=== PATIENT | male | born 1995 | race Caucasian/White ===

== ENCOUNTER 2018-09-03 18:44 | Emergency (ER) | payer OTHER ==
[2018-09-03 18:49] VITALS: BP 126/74; PULSE 67
--- NOTE | 2018-09-03 18:50 | PDOC ---
Rapid Medical Evaluation Chief Complaint: Rectal Bleed Time Seen by Provider: 09/03/18 18:48 Medical Evaluation: Allergies Allergy/AdvReac Type Severity Reaction Status Date / Time No Known Allergies Allergy Verified 07/09/16 23:05 09/03/18 18:48 I have performed a brief in-person evaluation of this patient. The patient presents with a chief complaint of:abd pain w/ bloody diarrhea today. No f/c/n/v. No recent travel/sick contacts or abx use. No sig pmhx Pertinent physical exam findings:Stable and well violeta I have ordered the following:labs The patient will proceed to the ED for further evaluation Discharge Disposition - Diagnosis Diarrhea Qualifiers: Diarrhea type: unspecified type Qualified Code(s): R19.7 - Diarrhea, unspecified - Discharge Dispostion Condition at time of disposition: Stable - Referrals - Patient Instructions - Post Discharge Activity
--- NOTE | 2018-09-03 19:55 | PDOC ---
History of Present Illness - General Chief Complaint: Rectal Bleed Stated Complaint: Rectal Bleed Time Seen by Provider: 09/03/18 18:48 History Source: Patient Exam Limitations: No Limitations - History of Present Illness Initial Comments: 19 yo M w no sig pmh here with 1 day of bloody diarrhea and mild abdominal pain. He denies recent travel or eating raw meat/ hamburgers. No sick contacts in his house. He reports not being in any abdominal pain at the present moment. He admits to drinking more alcohol in the past few weeks than usual ~ around 6 or 7 drinks at the most. Denies any Hx of crohn's or UC. He denies any recent fevers, chills or infections. He denies recent travel. Denies chest pain, SOB, difficulty breathing. Denies any back pain, leg pain, joint pain, dysuria, frequency, urgency. PCP: Angela Morrow Social Hx: Drinks alcohol, smokes marijuana. Denies smoking cigarettes, hooka, or illicit drug usage Allergies: NKA, NKDA Past History - Past Medical History Allergies/Adverse Reactions: Allergies Allergy/AdvReac Type Severity Reaction Status Date / Time No Known Allergies Allergy Verified 07/09/16 23:05 Home Medications: Ambulatory Orders NK [No Known Home Medication] 07/09/16 COPD: No Disorders: No Lung CA: No - Surgical History Cholecystectomy: No Lung Surgery: No - Immunization History Immunization Up to Date: No - Suicide/Smoking/Psychosocial Hx Smoking History: Never smoked Have you smoked in the past 12 months: No Number of Cigarettes Smoked Daily: 0 Information on smoking cessation initiated: No Hx Alcohol Use: No Drug/Substance Use Hx: No Review of Systems - Review of Systems Able to Perform ROS?: Yes Comments:: CONSTITUTIONAL: Absent: fever, no chills, no fatigue EYES: Absent: visual changes ENT: Absent: ear pain, no sore throat CARDIOVASCULAR: Absent: chest pain, no palpitations RESPIRATORY: Absent: cough, no SOB GI: Present: Abdominal pain, Diarrhea Absent: no nausea, no vomiting, no constipation GENITOURINARY: Absent: dysuria, no frequency, no hematuria MUSKULOSKELETAL: Absent: back pain, no arthralgia, no myalgia SKIN: Absent: rash NEURO: Absent: headache *Physical Exam - Vital Signs Last Vital Signs Temp Pulse Resp BP Pulse Ox 98.3 F 67 18 126/74 100 09/03/18 18:46 09/03/18 18:46 09/03/18 18:46 09/03/18 18:46 09/03/18 18:46 - Physical Exam Comments: GENERAL: Well-appearing, well-nourished. No apparent distress. HEENT: Normocephalic, atraumatic. PERRL, EOM intact. CARDIOVASCULAR: Normal S1, S2. Regular rate and rhythm. PULMONARY: Clear to auscultation bilaterally. ABDOMEN: Normal bowel sounds. Soft, non-distended, non-tender. EXTREMITIES: Normal ROM in all four extremities. No gross deformities. SKIN: Warm, dry. No rash NEUROLOGICAL: No focal neurological deficits. Moderate Sedation - Procedure Monitoring Vital Signs: Procedure Monitoring Vital Signs Temperature 98.3 F 09/03/18 18:46 Pulse Rate 67 09/03/18 18:46 Respiratory Rate 18 09/03/18 18:46 Blood Pressure 126/74 09/03/18 18:46 O2 Sat by Pulse Oximetry (%) 100 09/03/18 18:46 ED Treatment Course - LABORATORY CBC & Chemistry Diagram: 09/03/18 19:46 09/03/18 19:46 Medical Decision Making - Medical Decision Making 19 yo M w no sig pmh here with 1 day of bloody diarrhea and mild abdominal pain. DDx IBNLT: infectious colitis, crohn/UC, diarrhea, hemmorhoids, meckel Plan: Cbc, Cmp, IV hydration, Fecal Occult, re-assess. Patient feels better after a bolus. Will DC patient with GI cocktail and FU pending hemeoccult. *DC/Admit/Observation/Transfer Diagnosis at time of Disposition: Bloody diarrhea Diarrhea Qualifiers: Diarrhea type: unspecified type Qualified Code(s): R19.7 - Diarrhea, unspecified - Discharge Dispostion Disposition: HOME Condition at time of disposition: Stable Decision to Admit order: No - Referrals Referrals: Angela Morrow [Primary Care Provider] - James Vick MD [Staff Physician] - - Patient Instructions Printed Discharge Instructions: DI for Rectal Bleeding Additional Instructions: You came into the ER with abdominal pain and bloody diarrhea. We believe you ate something which upset your stomach. It is important to follow up with a stomach doctor if you experience another episode of bloody diarrhea. We are attaching the number for a GI doctor onto your papers for you to call and schedule an appointment. Come back to the emergency room if your chris worsens, you develop a fever, or have any other new or worsening concerns. Thank you for coming to the [facility]. We hope you feel better soon! Print Language: NEPALI - Post Discharge Activity
[2018-09-03 19:56] LABS: BASO % 0.9 % (0-2.0); EOS % 1.5 % (0-4.5); HEMOGLOBIN 15.6 GM/dL (11.7-16.9); LYMPH % 20.4 % (8-40); MCH 31.6 pg (25.7-33.7); MCHC 35.5 g/dl (32.0-35.9); MEAN PLT VOLUME 8.5 fl (7.5-11.1); MONO % 9.8 % (3.8-10.2); NEUT % 67.4 % (42.8-82.8); PLATELET COUNT 222 K/MM3 (134-434); RBC 4.95 M/mm3 (4.00-5.60); RDW 13.4 % (11.9-15.9); WHITE BLOOD COUNT 9.8 K/mm3 (4.0-10.0)
--- NOTE | 2018-09-03 20:01 | PDOC ---
Attending Attestation - Resident Resident Name: Mohan Ruiz - ED Attending Attestation I have performed the following: I have examined & evaluated the patient, The case was reviewed & discussed with the resident, I agree w/resident's findings & plan - HPI HPI: 09/03/18 20:02 19 yo M w no sig pmh here with 1 day of bloody diarrhea and mild abdominal pain. +ate chicken wings, possible precipitant. no surgical history. no other sick contacts or travel hx. 09/03/18 20:10 - Physicial Exam PE: 09/03/18 20:03 NAD, well appearing, PERRL, EOMI, MMM, nl conjunctiva, anicteric; neck supple. lungs clear, RRR, abdomen soft nontender. BETHEA x4. No peripheral edema. normal color for ethnicity, WWP. rectal exam with resident, no gross blood 09/03/18 20:35 - Medical Decision Making 09/03/18 20:36 HPI as documented VS wnl, no fever, abdomen soft, Nondistended, nontender. rectal exam unremarkable, no bleeding episodes here or sx. basic labs and lytes wnl guaiac_negative, reassuring remains well. possible infectious colitis, with food precipitants (?chicken wings, pork), so will rx cipro x 5 days. doubt intra abdominal pathology without focal tenderness, reassuring labs and appearance, doubt perf/obstruction/ischemia. return precautions given, including lethargy, dehydration, additional bowel movement changes/bloody BM, vomiting or other sx that indicates worsening condition. pt verbalized understanding of impression and plan, discharge in stable condition. GI followup referral as outpatient. 09/03/18 21:16
[2018-09-03 20:25] LABS: ALBUMIN 4.3 g/dl (3.4-5.0); ALK PHOS 66 U/L (45-117); ANION GAP 5 MMOL/L (8-16); BILIRUBIN,TOTAL 0.6 mg/dL (0.2-1); BLOOD UREA NITROGEN 17 mg/dL (7-18); CALCIUM 9.2 mg/dL (8.5-10.1); CHLORIDE 103 mmol/L (98-107); CO2 31 mmol/L (21-32); GLUCOSE,RANDOM 87 mg/dL (74-106); SGOT/AST 19 U/L (15-37); SGPT/ALT 23 U/L (13-61); SODIUM 139 mmol/L (136-145); TOT PROT 7.7 g/dl (6.4-8.2)
[2018-09-03 20:27] VITALS: TEMP 98.2
== END 2018-09-03 22:33 | disposition home or self-care (01) ==
LOC: JER 18:44
DX: R19.7 Diarrhea, unspecified (principal); K92.1 Melena
CPT/HCPCS: 36415; 80053; 82272; 85025; 99282-25

== ENCOUNTER 2018-12-13 05:14 | Emergency (ER) | payer OTHER ==
[2018-12-13 06:50] VITALS: BP 129/77; PULSE 61; TEMP 98.6; BMI 21.9
--- NOTE | 2018-12-13 07:12 | PDOC ---
History of Present Illness - General Chief Complaint: Chest Pain Stated Complaint: CHEST PAIN Time Seen by Provider: 12/13/18 07:10 History Source: Patient Exam Limitations: No Limitations - History of Present Illness Initial Comments: 12/13/18 07:19 23 yo M with no past medical history presents to the emergency department with chest pain that began yesterday afternoon. It was sudden onset, located in the left chest wall, non radiating, lasts "for a few seconds", random onset, worsens with deep breathing and burping, and no relieving factors. Denies SOB, nausea, vomiting, lightheadedness, familial OK, syncope, palpitations, fevers, chills, recent URI, trauma, and abdominal pain. Shx: None Meds: None Allergies: NKDA Social: Denies current tobacco use, alcohol, and substance abuse. Quit smoking 3 months ago. Past History - Past Medical History Allergies/Adverse Reactions: Allergies Allergy/AdvReac Type Severity Reaction Status Date / Time No Known Allergies Allergy Verified 12/13/18 07:50 Home Medications: Ambulatory Orders NK [No Known Home Medication] 12/13/18 COPD: No Disorders: No Lung CA: No - Surgical History Cholecystectomy: No Lung Surgery: No - Immunization History Immunization Up to Date: No - Suicide/Smoking/Psychosocial Hx Smoking History: Never smoked Have you smoked in the past 12 months: No Number of Cigarettes Smoked Daily: 0 Information on smoking cessation initiated: No Hx Alcohol Use: Yes (occasional) Drug/Substance Use Hx: No Review of Systems - Review of Systems Able to Perform ROS?: Yes Is the patient limited Hebrew proficient: No Constitutional: No: Chills, Diaphoresis, Fever, Weakness HEENTM: No: Eye Pain, Recent change in vision, Ear Pain, Nose Pain, Throat Pain , Mouth Pain Respiratory: No: Cough, Shortness of Breath Cardiac (ROS): Yes: Chest Pain. No: Lightheadedness, Palpitations, Syncope, Chest Tightness ABD/GI: No: Constipated, Diarrhea, Nausea, Poor Appetite, Poor Fluid Intake, Rectal Bleeding, Vomiting, Tarry Stools : No: Burning, Dysuria, Hematuria, Incontinence, Urgency Musculoskeletal: No: Back Pain, Joint Pain, Neck Pain Integumentary: No: Bruising, Erythema, Rash Neurological: No: Headache, Numbness, Tingling, Ataxia Psychiatric: No: Change in Appetite Endocrine: No: Unexplained Weight Gain Hematologic/Lymphatic: No: Anemia *Physical Exam - Vital Signs Last Vital Signs Temp Pulse Resp BP Pulse Ox 98.6 F 61 18 129/77 99 12/13/18 05:15 12/13/18 05:15 12/13/18 05:15 12/13/18 05:15 12/13/18 05:15 - Physical Exam General Appearance: Yes: Nourished, Appropriately Dressed. No: Apparent Distress, Intoxicated HEENT: positive: EOMI, ANIL, Normal Voice, Symmetrical, Pharynx Normal, Hearing Grossly Normal. negative: Pale Conjunctivae, Scleral Icterus (R), Scleral Icterus (L), Muffled/Hoarse voice, Pharyngeal Erythema, Tonsillar Exudate, Tonsillar Erythema, Nasal Congestion, Rhinorrhea, Excessive drooling Neck: positive: Trachea midline, Supple. negative: Tender, Lymphadenopathy (R) , Lymphadenopathy (L), Tender lateral, Tender midline Respiratory/Chest: positive: Lungs Clear, Normal Breath Sounds. negative: Chest Tender, Respiratory Distress, Accessory Muscle Use Cardiovascular: positive: Regular Rhythm, Regular Rate, S1, S2. negative: Systolic Murmur Gastrointestinal/Abdominal: positive: Normal Bowel Sounds, Flat, Soft. negative : Tender, Distended, Guarding, Rebound Lymphatic: negative: Adenopathy Musculoskeletal: positive: Normal Inspection. negative: CVA Tenderness, Vertebral Tenderness Extremity: positive: Normal Capillary Refill, Normal Inspection, Normal Range of Motion. 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 negative: EOM Palsy, Facial Droop , Sensory Deficit Moderate Sedation - Procedure Monitoring Vital Signs: Procedure Monitoring Vital Signs Temperature 98.6 F 12/13/18 05:15 Pulse Rate 61 12/13/18 05:15 Respiratory Rate 18 12/13/18 05:15 Blood Pressure 129/77 12/13/18 05:15 O2 Sat by Pulse Oximetry (%) 99 12/13/18 05:15 Heart Score/ECG Review - ECG Intrepretation Comment:: ventricular rate is 61 bpm, VT is 176 ms, QTc is 383 ms, QRS is [address] elevations or depressions. Medical Decision Making - Medical Decision Making 23 yo M with no past medical history presents to the emergency department with chest pain that began yesterday afternoon. Initial vitals: Initial Vital Signs Temp Pulse Resp BP Pulse Ox 98.6 F 61 18 129/77 99 12/13/18 05:15 12/13/18 05:15 12/13/18 05:15 12/13/18 05:15 12/13/18 05:15 Work up: ddx: ACS rule out. presents with atypical chest pain. ddx includes costochondritis vs PNA vs pleuritis vs pericarditis vs URI CXR was within normal limits. EKG was within normal limits; NSR without ST elevations or depressions. Gave the patient return precautions. I discussed the physical exam findings, ancillary test results, and final diagnoses with the patient. I answered all of the patients questions to their satisfaction. The patient was satisfied with the care received and felt comfortable with the discussed discharge and treatment plan and accepted it. They agreed to follow up with their primary medical physical physician within 24 -72 hours after discharge for follow up care and management. Dispo: Discharge *DC/Admit/Observation/Transfer Diagnosis at time of Disposition: Atypical chest pain - Discharge Dispostion Disposition: HOME Condition at time of disposition: Improved Decision to Admit order: No - Referrals Referrals: Angela Morrow [Primary Care Provider] - [facility] [Provider Group] - Patient Instructions Printed Discharge Instructions: DI for Atypical Chest Pain Additional Instructions: you were seen in the emergency department for the evaluation of your chest pain. your EKG and chest xray were within normal limits. please follow up with your doctor within 1 week after discharge for follow up care and management. please return to the emergency department if you have worsening pain or new concerning symptoms such as lightheadedness, loss of consciousness, and shortness of breath. please take motrin and tylenol for pain relief and as directed on the label. thank you. - Post Discharge Activity Forms/Work/School Notes: Back to Work
--- NOTE | 2018-12-13 07:42 | PDOC ---
Attending Attestation - Resident Resident Name: Abner Cevallos - ED Attending Attestation I have performed the following: I have examined & evaluated the patient, The case was reviewed & discussed with the resident, I agree w/resident's findings & plan, Exceptions are as noted - HPI HPI: 12/13/18 07:33 23y M no pmhx presents with complant of chest pain. The patient endorses intermitent chest pain since yesterday afternoon upon awakening to get ready to work, it is left sided, non-radiation, pressure like and lasting approx 30 seconds at a time, and lasting several times an hour until last evening. There was no associated shortness of breath, cough, hemoptysis, diaphoresis, leg swelling, back pain, abd pain, numbness/tingling/weakness, allred, sob. 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 pt is currently asypmtomatic social: denies current smoking, +occasional pot use GENERAL: The patient is awake, alert, and fully oriented, Nontoxic - in no acute distress. HEAD: Normocephalic, atraumatic. EYES: extraocular movements intact, sclera anicteric, conjunctiva clear. ENT: Normal voice, Moist mucous membranes. NECK: Normal range of motion, supple LUNGS: Breath sounds equal, clear to auscultation bilaterally. No wheezes, no rhonchi, no rales. HEART: Regular rate and rhythm, normal S1 and S2 without murmur, rub or gallop. ABDOMEN: Soft, nontender, normoactive bowel sounds. No guarding, no rebound. . No CVA tenderness EXTREMITIES: Normal range of motion, no edema. No clubbing or cyanosis. No cords, erythema, or tenderness. NEUROLOGICAL: No facial assymetry, Normal speech, PSYCH: Normal mood, normal affect. SKIN: Warm, Dry, normal turgor, No rashes noted on chest wall DDX - doubt acs, possible muscle spasm will obtain ekg, cxr to screen for cardiac/pulm pathology will refer to PMD - Physicial Exam PE: 12/13/18 08:27 see above - Medical Decision Making 12/13/18 08:27 ekg nsr cxr clear pt asypmtmatic will dc the pt with pmd fu return precautions were discusse dincluding recurrent cp, sob, or any other concerns. Heart Score/ECG Review - ECG Impressions Comment:: 12/13/18 08:26 Twelve-lead EKG was performed and reviewed by me. There is normal sinus rhythm with a normal rate. rate of 61 The axis is normal. The intervals are normal. There is normal R wave progression There are no ST or T wave abnormalities. Impression: Normal twelve-lead EKG
--- NOTE | 2018-12-13 10:56 | EKG ---
Test Reason : Blood Pressure : / mmHG Vent. Rate : 061 BPM Atrial Rate : 061 BPM P-R Int : 176 ms QRS Dur : 108 ms QT Int : 384 ms P-R-T Axes : 034 041 035 degrees QTc Int : 386 ms NORMAL SINUS RHYTHM NORMAL ECG NO PREVIOUS ECGS AVAILABLE Confirmed by STEVE JIMENEZ MD ([id number]) on 12/13/2018 10:56:43 AM Referred By: Confirmed By:STEVE JIMENEZ MD
== END 2018-12-13 08:12 | disposition home or self-care (01) ==
LOC: JER 05:14
DX: R07.9 Chest pain, unspecified (principal)
CPT/HCPCS: 71046-TC-FY; 93005; 93010; 99282-25

== ENCOUNTER 2019-02-23 20:30 | Emergency (ER) | payer OTHER | END 2019-02-23 21:45 | disposition home or self-care (01) | LOC: JERFT 20:30 ==

== ENCOUNTER 2024-11-20 11:56 | Inpatient (IN) | payer OTHER ==
[2024-11-20] MEDS ORDERED: DICYCLOMINE HCL 10 MG CAPSULE PO PRN (12:26)
[2024-11-20] MEDS ORDERED: MAGNESIUM HYDROX 2400MG/30ML ORAL SUSPENSION 30 ML CUP PO PRN (12:26)
[2024-11-20] MEDS ORDERED: ACETAMINOPHEN 325 MG TABLET (FP) PO PRN (12:26)
[2024-11-20] MEDS ORDERED: guaiFENesin 600 MG TABLET.ER (FP) PO PRN (12:26)
[2024-11-20] MEDS ORDERED: BENZONATATE 200 MG CAPSULE PO PRN (12:26)
[2024-11-20] MEDS ORDERED: POLYETHYLENE GLYCOL (HEALTHYLAX) 3350 17 GM PACKET PO PRN (12:26)
[2024-11-20] MEDS ORDERED: BISMUTH SUBSALICYLATE 262 MG/15 ML BTL PO PRN (12:26)
[2024-11-20] MEDS ORDERED: IBUPROFEN 400 MG TABLET (FP) PO PRN (12:26)
[2024-11-20] MEDS ORDERED: LOPERAMIDE HCL 2 MG CAPSULE PO PRN (12:26)
[2024-11-20] MEDS ORDERED: NALOXONE (NARCAN) HCL 4 MG/0.1 ML SPRAY NS PRN (12:26)
[2024-11-20] MEDS ORDERED: IBUPROFEN 600 MG TABLET (FP) PO PRN (12:26)
[2024-11-20] MEDS ORDERED: MAG HYDROX/AL HYDROX/SIMETH 30 ML UNIT-DOSE CUP PO PRN (12:26)
[2024-11-20 12:52] VITALS: BMI 27.7
[2024-11-20] MEDS ORDERED: propRANOLol HCL 10 MG TABLET ONE (12:57)
[2024-11-20] MEDS: propRANOLol HCL 10 MG TABLET PO ONE (13:00)
[2024-11-20 17:07] LABS: HEMATOCRIT 50.2 % (35.4-49); HEMOGLOBIN 16.8 GM/dL (11.7-16.9); MCH 29.2 pg (25.7-33.7); MCHC 33.5 g/dl (32.0-35.9); MEAN CELL VOLUME 86.9 fl (80-96); MEAN PLT VOLUME 8.8 fl (7.5-11.1); PLATELET COUNT 395 10^3/uL (134-434); RBC 5.78 M/mm3 (4.00-5.60); RDW 13.4 % (11.9-15.9); WHITE BLOOD COUNT 12.8 K/mm3 (4.0-10.0)
[2024-11-20 17:31] LABS: CALCIUM 9.5 mg/dL (8.5-10.1)
[2024-11-20 17:32] LABS: ALBUMIN 4.4 g/dl (3.4-5.0); BLOOD UREA NITROGEN 12.5 mg/dL (7-18)
[2024-11-20 17:35] LABS: CREATININE 1.3 mg/dL (0.55-1.3)
[2024-11-20 17:37] LABS: BILIRUBIN,TOTAL 0.4 mg/dL (0.2-1); TOT PROT 8.5 g/dl (6.4-8.2)
[2024-11-20] MEDS: MELATONIN 5 MG TABLETS PO SCH (22:31)
[2024-11-20] MEDS: THIAMINE 100 MG TABLET PO SCH (22:31)
[2024-11-21] MEDS ORDERED: chlordiazePOXIDE HCL 25 MG CAPSULE PO PRN (08:21)
[2024-11-21] MEDS: chlordiazePOXIDE HCL 25 MG CAPSULE PO SCH (10:05)
[2024-11-21] MEDS: PRENATAL VITAMINS W/ FOLIC ACID TABLET (FP) PO SCH (10:05)
[2024-11-22] MEDS: NICOTINE POLACRILEX 2 MG GUM BUC PRN (09:25)
[2024-11-22] MEDS: NICOTINE 14 MG/24 HOURS TOPICAL PATCH TD SCH (12:10)
[2024-11-22] MEDS: ONDANSETRON *ODT* 4 MG TABLET SL PRN (17:35)
[2024-11-22] MEDS: NICOTINE POLACRILEX 2 MG LOZENGE BC PRN (17:37)
[2024-11-22] MEDS: METHOCARBAMOL 500 MG TABLET PO PRN (22:19)
[2024-11-23] MEDS: chlordiazePOXIDE HCL 25 MG CAPSULE PO SCH (05:44)
[2024-11-23] MEDS: BENZOCAINE/MENTHOL (CHLORASEPTIC ) LOZENGE MM PRN (13:23)
[2024-11-24] MEDS ORDERED: chlordiazePOXIDE HCL 10 MG CAPSULE PO PRN
[2024-11-24] MEDS: chlordiazePOXIDE HCL 10 MG CAPSULE PO SCH (05:47)
[2024-11-25] MEDS: chlordiazePOXIDE HCL 10 MG CAPSULE PO SCH (05:38)
[2024-11-25] MEDS: NALTREXONE HCL 50 MG TABLET PO SCH (10:24)
[2024-11-25] MEDS: NICOTINE POLACRILEX 4 MG LOZENGE BC PRN (10:27)
[2024-11-26] MEDS: chlordiazePOXIDE HCL 10 MG CAPSULE PO ONE (05:50)
[2024-11-26] MEDS: NICOTINE POLACRILEX 4 MG GUM BUC PRN (05:54)
[2024-11-26 06:01] VITALS: RESP 17
[2024-11-26 09:03] VITALS: BP 133/88; PULSE 94; TEMP 98.7
== END 2024-11-26 09:33 | disposition other institution (70) | DRG 775 ==
LOC: YASAS 11:56 → Y6N 13:07
PROVIDERS: ADMIT Allergy & Immunology; ATTEND Allergy & Immunology
PROC: HZ2ZZZZ Detoxification Services for Substance Abuse Treatment (ICD-10-PCS; principal; 2024-11-20)
DX: F10.230 Alcohol dependence with withdrawal, uncomplicated (principal); F10.220 Alcohol dependence with intoxication, uncomplicated; F17.290 Nicotine dependence, other tobacco product, uncomplicated; F10.282 Alcohol dependence with alcohol-induced sleep disorder; R03.0 Elevated blood-pressure reading, without diagnosis of hypertension; R73.9 Hyperglycemia, unspecified; R74.01 Elevation of levels of liver transaminase levels; Z62.810 Personal history of physical and sexual abuse in childhood
CPT/HCPCS: 36415; 80053; 80305; 80307; 85027; 86780; 93005; 93010; Q0162